=== PATIENT | male | born 1990 | race Native Hawaiian/Other Pacific Islander ===

== ENCOUNTER 2023-10-05 15:58 | Emergency (ER) | payer OTHER ==
[~2023-10-05] VITALS: Ht 172.7 cm; Wt 70.3 kg
== END 2023-10-05 19:15 | disposition home or self-care (01) ==
LOC: ED 15:58
DX: M25.512 Pain in left shoulder (principal); S43.402A Unspecified sprain of left shoulder joint, initial encounter; Y92.89 Other specified places as the place of occurrence of the external cause
CPT/HCPCS: 99283